=== PATIENT | male | born 1980 | race Caucasian/White ===

== ENCOUNTER 2021-12-04 01:03 | Emergency (ER) | payer OTHER ==
[~2021-12-04] VITALS: Ht 170.2 cm; Wt 77.9 kg
[2021-12-04 01:04] VITALS: BP 150/102
[2021-12-04] MEDS ORDERED: ACET-897 PO (01:13)
== END 2021-12-04 07:12 | disposition left against medical advice (07) ==
LOC: M ED 01:03
DX: Z53.21 Procedure and treatment not carried out due to patient leaving prior to being seen by health care provider (principal)